=== PATIENT | female | born 2000 | race Caucasian/White ===

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

== ENCOUNTER 2020-05-17 13:04 | Emergency (ER) | payer OTHER ==
[~2020-05-17] VITALS: Ht 170.2 cm; Wt 120.2 kg
[~2020-05-17 13:04] MED LIST changes: +Cyclobenzaprine5 MG PO
[2020-05-17 14:54] LABS: BASOPHILS ABSOLUTE AUTO 0.09 K/mm3 (0.00-0.23); BASOPHILS PERCENT AUTO 1 % (0-2); EOSINOPHILS PERCENT AUTO 1 % (0-6); Hematocrit 41.9 % (33.0-51.0); Hemoglobin 13.6 g/dL (11.5-16.0); IMMATURE GRAN ABSOLUTE AUTO 0.06 K/mm3 (0.00-0.10); IMMATURE GRAN PERCENT AUTO 1 % (0-1); LYMPHOCYTES ABSOLUTE AUTO 1.88 K/mm3 (0.84-5.20); LYMPHOCYTES PERCENT AUTO 16 % (21-46); MONOCYTES ABSOLUTE AUTO 0.71 K/mm3 (0.16-1.47); MONOCYTES PERCENT AUTO 6 % (4-13); Mean Corpuscular HGB 28.7 pg (26.0-34.0); Mean Corpuscular HGB Conc 32.5 g/dL (31.5-36.5); Mean Corpuscular Volume 88 fL (80-100); Mean Platelet Volume 12.1 fL (9.1-12.4); NEUTROPHILS ABSOLUTE AUTO 9.28 K/mm3 (1.96-9.15); NEUTROPHILS PERCENT AUTO 77 % (41-73); Platelet Count 182 K/mm3 (150-400); RDW Coefficient Variation 13.7 % (11.7-14.2); RDW Standard Deviation 44.1 fL (35.1-46.3); Red Blood Cell Count 4.74 M/mm3 (3.80-5.20); White Blood Cell Count 12.12 K/mm3 (4.00-11.30)
[2020-05-17 15:03] LABS: Anion Gap 4 mmol/L (6-16); Blood Urea Nitrogen 7 mg/dL (8-24); Bun/Creatinine Ratio 14.5 (12.0-20.0); CO2, Blood 24 mmol/L (21-32); Calcium, Blood 8.7 mg/dL (8.5-10.1); Chloride, Blood 110 mmol/L (98-108); Creatinine, Blood 0.48 mg/dL (0.40-1.00); Glomerular Filtration Rate >60 (60-); Glucose, Blood 92 mg/dL (70-99); Potassium, Blood 3.9 mmol/L (3.5-5.5); Sodium, Blood 138 mmol/L (136-145)
== END 2020-05-17 16:58 | disposition home or self-care (01) ==
LOC: ER 13:04
PROVIDERS: Physician Assistant
DX: O99.613 Diseases of the digestive system complicating pregnancy, third trimester (principal); K92.0 Hematemesis; K21.9 Gastro-esophageal reflux disease without esophagitis; Z3A.30 30 weeks gestation of pregnancy; Z79.899 Other long term (current) drug therapy
CPT/HCPCS: 36415; 80048; 85025; 99284

== ENCOUNTER 2020-07-24 08:30 | Inpatient (IN) | payer OTHER ==
[~2020-07-24] VITALS: Ht 170.2 cm; Wt 121.5 kg
--- NOTE | 2020-07-24 09:39 | NUR ---
HERE WITH R/O SROM/ PATIENT REPORTS LEAKING AT APPROX 0745. NITRAZINE POSITIVE. ADMIT TO [facility]BP
[2020-07-24 09:59] LABS: BASOPHILS ABSOLUTE AUTO 0.05 K/mm3 (0.00-0.23); BASOPHILS PERCENT AUTO 1 % (0-2); EOSINOPHILS ABSOLUTE AUTO 0.13 K/mm3 (0.00-0.68); EOSINOPHILS PERCENT AUTO 1 % (0-6); Hematocrit 35.4 % (33.0-51.0); Hemoglobin 11.9 g/dL (11.5-16.0); IMMATURE GRAN ABSOLUTE AUTO 0.03 K/mm3 (0.00-0.10); IMMATURE GRAN PERCENT AUTO 0 % (0-1); LYMPHOCYTES ABSOLUTE AUTO 1.74 K/mm3 (0.84-5.20); LYMPHOCYTES PERCENT AUTO 18 % (21-46); MONOCYTES ABSOLUTE AUTO 0.91 K/mm3 (0.16-1.47); MONOCYTES PERCENT AUTO 10 % (4-13); Mean Corpuscular HGB 29.1 pg (26.0-34.0); Mean Corpuscular HGB Conc 33.6 g/dL (31.5-36.5); Mean Corpuscular Volume 87 fL (80-100); NEUTROPHILS ABSOLUTE AUTO 6.74 K/mm3 (1.96-9.15); NEUTROPHILS PERCENT AUTO 70 % (41-73); Platelet Count 149 K/mm3 (150-400); RDW Coefficient Variation 13.2 % (11.7-14.2); RDW Standard Deviation 41.1 fL (35.1-46.3); Red Blood Cell Count 4.09 M/mm3 (3.80-5.20)
[2020-07-24 10:01] LABS: Mean Platelet Volume 13.4 fL (9.1-12.4)
[2020-07-24 10:19] LABS: Influenza A, PCR NEGATIVE (NEGATIVE); Influenza B, PCR NEGATIVE (NEGATIVE); Resp Syncytial Virus, PCR NEGATIVE (NEGATIVE); SARS-Cov-2 (COVID-19) PCR, MMC NEGATIVE (NEGATIVE)
[2020-07-26 05:57] LABS: Hematocrit 33.5 % (33.0-51.0); Hemoglobin 11.1 g/dL (11.5-16.0); Mean Corpuscular HGB 28.8 pg (26.0-34.0); Mean Corpuscular HGB Conc 33.1 g/dL (31.5-36.5); Mean Corpuscular Volume 87 fL (80-100); Platelet Count 140 K/mm3 (150-400); RDW Coefficient Variation 13.5 % (11.7-14.2); RDW Standard Deviation 42.1 fL (35.1-46.3); Red Blood Cell Count 3.86 M/mm3 (3.80-5.20); White Blood Cell Count 9.75 K/mm3 (4.00-11.30)
[2020-07-26 05:58] LABS: Mean Platelet Volume 13.1 fL (9.1-12.4)
--- NOTE | 2020-07-26 13:18 | NUR ---
pt given dc instructions written and verbal with pt verbalizing understanding
== END 2020-07-26 12:29 | disposition home or self-care (01) | DRG 807 ==
LOC: BC 08:30 → OBS 08:30 → BC 08:32 → OBS 08:59 → BC 08:59
PROVIDERS: ADMIT Advanced Practice Midwife
PROC: 3E0R3BZ Introduction of Anesthetic Agent into Spinal Canal, Percutaneous Approach (ICD-10-PCS; 2020-07-24)
PROC: 00HU33Z Insertion of Infusion Device into Spinal Canal, Percutaneous Approach (ICD-10-PCS; 2020-07-24)
PROC: 10H07YZ Insertion of Other Device into Products of Conception, Via Natural or Artificial Opening (ICD-10-PCS; 2020-07-24)
PROC: 10E0XZZ Delivery of Products of Conception, External Approach (ICD-10-PCS; principal; 2020-07-25)
PROC: 0HQ9XZZ Repair Perineum Skin, External Approach (ICD-10-PCS; 2020-07-25)
DX: O99.824 Streptococcus B carrier state complicating childbirth (principal); Z37.0 Single live birth; O70.0 First degree perineal laceration during delivery; Z3A.39 39 weeks gestation of pregnancy; Z20.822 Contact with and (suspected) exposure to COVID-19; O69.81X0 Labor and delivery complicated by cord around neck, without compression, not applicable or unspecified
CPT/HCPCS: 0241U; 36415; 51702; 59025; 85025; 85027; 86850; 86900; 86901; A9270; J0290; J1885; J2001; J2210; J2405; J2590; J3010; J7120

== ENCOUNTER → 2020-10-12 | Outpatient (CLI) | payer OTHER | LOC: LAB SHORT 13:49 → LAB 13:49 | PROVIDERS: Family Medicine | DX: Z12.4 Encounter for screening for malignant neoplasm of cervix (principal) | CPT/HCPCS: G0123 ==

== ENCOUNTER 2024-01-02 20:10 | Emergency (ER) | payer OTHER ==
[~2024-01-02] VITALS: Ht 170.2 cm; Wt 113.4 kg
[~2024-01-02 20:10] MED LIST changes: +GABA100 PO
[2024-01-02 20:13] VITALS: BP 101/84
[2024-01-02] MEDS ORDERED: Diphth,Pertuss(Acell),Tet Vac 0.5 ML VIAL IM ONE (20:15)
== END 2024-01-02 21:25 | disposition home or self-care (01) ==
LOC: ER 20:10
DX: S61.411A Laceration without foreign body of right hand, initial encounter (principal); W25.XXXA Contact with sharp glass, initial encounter; Z79.899 Other long term (current) drug therapy
CPT/HCPCS: 12001; 90471; 90715; 99282-25

== ENCOUNTER → 2024-04-11 | Outpatient (CLI) | payer BC | LOC: LAB SHORT 19:07 | DX: Z34.93 Encounter for supervision of normal pregnancy, unspecified, third trimester (principal) | CPT/HCPCS: 87081; 87150 ==

== ENCOUNTER 2024-04-26 07:02 | Inpatient (IN) | payer BC ==
[~2024-04-26] VITALS: Ht 170.2 cm; Wt 116.7 kg
[2024-04-26] VITALS (11 sets, daily range): BP systolic 102–160; BP diastolic 55–68
[2024-04-26] MEDS ORDERED: FentaNYL Citrate 50 MCG/ML 2 ML Injection IV PRN (07:10)
[2024-04-26] MEDS ORDERED: Methylergonovine Maleate 0.2MG / ML 1ML Amp IM PRN (07:15)
[2024-04-26] MEDS ORDERED: Oxytocin 10 Unit / ML Vial IM PRN (07:15)
[2024-04-26] MEDS ORDERED: Acetaminophen 500 MG Tab PO PRN (07:15)
[2024-04-26] MEDS ORDERED: Carboprost Tromethamine 250 MCG/ML 1ML Amp IM PRN (07:15)
[2024-04-26] MEDS ORDERED: Penicillin G Potassium 5,000,000 UNITS in NS 250 ML IV ONE (07:15)
[2024-04-26] MEDS ORDERED: Misoprostol 200 MCG Tab PR PRN (07:15)
[2024-04-26] MEDS ORDERED: Calcium Carbonate 500 MG Tab Chew PO PRN (07:15)
[2024-04-26] MEDS ORDERED: Lactated Ringer's 1,000 ML IV PRN (07:15)
[2024-04-26] MEDS ORDERED: Misoprostol 200 MCG Tab BC PRN (07:15)
[2024-04-26] MEDS ORDERED: OXYTOCIN/RINGER'S LACTATE 500 ML IV SCH (07:15)
[2024-04-26] MEDS ORDERED: Lactated Ringer's 1,000 ML IV SCH ×3 (07:15→07:20)
[2024-04-26] MEDS ORDERED: OXYTOCIN/RINGER'S LACTATE 500 ML IV PRN (07:15)
[2024-04-26] MEDS ORDERED: Ondansetron HCl 2 MG / ML 2ML Vial IV PRN (07:15)
[2024-04-26] MEDS ORDERED: ePHEDrine Sulfate 50 MG/ML 1ML Injection XX PRN (07:20)
[2024-04-26] MEDS ORDERED: FentaNYL 2mcg/ml-Bup 0.1% Epd 250 ML EPI PRN (07:20)
[2024-04-26] MEDS ORDERED: Tranexamic Acid 1,000 MG in NS 100 ML IV SCH (07:30)
[2024-04-26] MEDS ORDERED: PRENATAL TABLE1 EAC2 PO (07:45)
[2024-04-26] MEDS ORDERED: Misoprostol 25 MCG Tab PO SCH (08:00)
[2024-04-26 08:09] LABS: BASOPHILS ABSOLUTE AUTO 0.08 K/mm3 (0.00-0.23); BASOPHILS PERCENT AUTO 1 % (0-2); EOSINOPHILS ABSOLUTE AUTO 0.13 K/mm3 (0.00-0.68); EOSINOPHILS PERCENT AUTO 1 % (0-6); Hematocrit 37.2 % (33.0-51.0); Hemoglobin 12.5 g/dL (11.5-16.0); IMMATURE GRAN ABSOLUTE AUTO 0.05 K/mm3 (0.00-0.10); IMMATURE GRAN PERCENT AUTO 1 % (0-1); LYMPHOCYTES ABSOLUTE AUTO 1.43 K/mm3 (0.84-5.20); LYMPHOCYTES PERCENT AUTO 15 % (21-46); MONOCYTES ABSOLUTE AUTO 0.54 K/mm3 (0.16-1.47); MONOCYTES PERCENT AUTO 6 % (4-13); Mean Corpuscular HGB 29.1 pg (26.0-34.0); Mean Corpuscular HGB Conc 33.6 g/dL (31.5-36.5); Mean Corpuscular Volume 87 fL (80-100); Mean Platelet Volume 12.5 fL (9.1-12.4); NEUTROPHILS ABSOLUTE AUTO 7.22 K/mm3 (1.96-9.15); NEUTROPHILS PERCENT AUTO 77 % (41-73); Platelet Count 162 K/mm3 (150-400); RDW Coefficient Variation 13.7 % (11.7-14.2); RDW Standard Deviation 42.5 fL (35.1-46.3); Red Blood Cell Count 4.29 M/mm3 (3.80-5.20); White Blood Cell Count 9.45 K/mm3 (4.00-11.30)
[2024-04-26] MEDS ORDERED: Penicillin G Potassium 2,500,000 UNITS in Dextrose 5% 100 ML IV SCH (12:00)
[2024-04-27] VITALS (37 sets, daily range): BP systolic 88–181; BP diastolic 49–75
[2024-04-27] MEDS ORDERED: NS 1,000 ML IV ONE (03:29)
[2024-04-27] MEDS ORDERED: NS 1,000 ML BAG XX SCH (04:55)
[2024-04-27] MEDS ORDERED: Metoclopramide HCl 5MG / ML 2ML Vial IV ONE (07:10)
[2024-04-27] MEDS ORDERED: Pantoprazole Sodium 40 MG Injection IV ONE (07:10)
[2024-04-27] MEDS ORDERED: Lactated Ringer's 1,000 ML IV SCH ×3 (07:15→10:45)
[2024-04-27] MEDS ORDERED: Ibuprofen 400 MG Tab PO PRN (10:35)
[2024-04-27] MEDS ORDERED: Lanolin Cream TOP PRN (10:40)
[2024-04-27] MEDS ORDERED: FLU VACC TS2024-25(6MOS UP)/PF 45 MCG/0.5 ML SYRINGE IM SCH (10:40)
[2024-04-27] MEDS ORDERED: Witch Hazel/Glycerin PADS TOP PRN (10:40)
[2024-04-27] MEDS ORDERED: OXYTOCIN/RINGER'S LACTATE 500 ML IV SCH (10:40)
[2024-04-27] MEDS ORDERED: OxyCODONE 5 mg/Acetamin 325 mg TABLET PO PRN (10:40)
[2024-04-27] MEDS ORDERED: Docusate Sodium 100 MG Cap PO PRN (10:40)
[2024-04-27] MEDS ORDERED: Methylergonovine Maleate 0.2MG / ML 1ML Amp IM PRN (10:45)
[2024-04-27] MEDS ORDERED: Ketorolac Tromethamine 30mg Vial IV PRN (10:45)
[2024-04-27] MEDS ORDERED: Diphth,Pertuss(Acell),Tet Vac 0.5 ML VIAL IM SCH (10:45)
[2024-04-27] MEDS ORDERED: Benzocaine Topical Anesthetic Spray 60GM TOP PRN (10:45)
[2024-04-27] MEDS ORDERED: Misoprostol 100 MCG Tab PO PRN (10:45)
[2024-04-27] MEDS ORDERED: Acetaminophen 325 MG TABLET PO PRN (10:45)
[2024-04-28 01:13] VITALS: BP 137/79
[2024-04-28 04:55] VITALS: BP 117/60
[2024-04-28 06:21] LABS: Hematocrit 34.3 % (33.0-51.0); Hemoglobin 11.5 g/dL (11.5-16.0); Mean Corpuscular HGB 29.8 pg (26.0-34.0); Mean Corpuscular HGB Conc 33.5 g/dL (31.5-36.5); Mean Corpuscular Volume 89 fL (80-100); Mean Platelet Volume 12.2 fL (9.1-12.4); Platelet Count 159 K/mm3 (150-400); RDW Coefficient Variation 13.7 % (11.7-14.2); RDW Standard Deviation 44.3 fL (35.1-46.3); Red Blood Cell Count 3.86 M/mm3 (3.80-5.20); White Blood Cell Count 10.48 K/mm3 (4.00-11.30)
[2024-04-28 07:43] VITALS: BP 133/63
[2024-04-28] MEDS ORDERED: Prenatal Vit/FE Fumarate/FA 1 Tab PO SCH (09:00)
[2024-04-28 10:41] VITALS: BP 120/74
== END 2024-04-28 12:30 | disposition home or self-care (01) | DRG 807 ==
LOC: OBS 07:02 → BC 07:03 → OBS 07:14 → BC 07:15
PROVIDERS: ADMIT Advanced Practice Midwife
PROC: 10907ZC Drainage of Amniotic Fluid, Therapeutic from Products of Conception, Via Natural or Artificial Opening (ICD-10-PCS; 2024-04-26)
PROC: 10H07YZ Insertion of Other Device into Products of Conception, Via Natural or Artificial Opening (ICD-10-PCS; 2024-04-26)
PROC: 3E0P7VZ Introduction of Hormone into Female Reproductive, Via Natural or Artificial Opening (ICD-10-PCS; 2024-04-26)
PROC: 3E033VJ Introduction of Other Hormone into Peripheral Vein, Percutaneous Approach (ICD-10-PCS; 2024-04-26)
PROC: 4A1H7CZ Monitoring of Products of Conception, Cardiac Rate, Via Natural or Artificial Opening (ICD-10-PCS; 2024-04-26)
PROC: 10H073Z Insertion of Monitoring Electrode into Products of Conception, Via Natural or Artificial Opening (ICD-10-PCS; 2024-04-26)
PROC: 10E0XZZ Delivery of Products of Conception, External Approach (ICD-10-PCS; principal; 2024-04-27)
PROC: 3E0E77Z Introduction of Electrolytic and Water Balance Substance into Products of Conception, Via Natural or Artificial Opening (ICD-10-PCS; 2024-04-27)
DX: O99.824 Streptococcus B carrier state complicating childbirth (principal); Z37.0 Single live birth; Z3A.39 39 weeks gestation of pregnancy; K58.9 Irritable bowel syndrome, unspecified; O99.62 Diseases of the digestive system complicating childbirth; O99.324 Drug use complicating childbirth; F12.90 Cannabis use, unspecified, uncomplicated; O76 Abnormality in fetal heart rate and rhythm complicating labor and delivery
CPT/HCPCS: 36415; 51702; 59070; 85025; 85027; 86850; 86900; 86901; 86923; A9270; J1885; J2405; J2470; J2540; J2590; J3010; J7030; J7050; J7120

== ENCOUNTER 2024-07-14 08:19 | Day surgery (SDC) | payer BC ==
[2024-07-14] VITALS (11 sets, daily range): BP systolic 109–160; BP diastolic 50–119
[~2024-07-14] VITALS: Ht 170.2 cm; Wt 115.3 kg
[~2024-07-14 08:19] MED LIST changes: +CeFAZolin Sodium 2,000 MG in NS 100 ML IV SCH; +Lactated Ringer's 1,000 ML IV SCH; +PRENATAL TABLE1 EAC2 PO
[2024-07-14] MEDS ORDERED: CeFAZolin Sodium 2,000 MG VIAL ONE (09:00)
--- NOTE | 2024-07-14 09:44 | NUR ---
History, Chart, Medications and Allergies reviewed before start of procedure. Lungs clear T/O to Auscultation. Patient confirms NPO status and agrees with scheduled surgery. Pre-Op teaching done. Pt verbalizes understanding. Patient reports completing Chlorhexadine shower X2 prior to admission to hospital.
[2024-07-14] MEDS ORDERED: Bupivacaine 0.5% HCl 5 MG/ML 30MLVIAL ONE (10:05)
[2024-07-14] MEDS ORDERED: FentaNYL Citrate 50 MCG/ML 2 ML Injection ONE ×2 (10:06→11:46)
[2024-07-14] MEDS ORDERED: propofoL 20 ML IV ONE (10:06)
[2024-07-14] MEDS ORDERED: Rocuronium Bromide 10 MG/ML 5ML Injection IV ONE (10:07)
[2024-07-14] MEDS ORDERED: Lidocaine HCl 2% 20 ML MDV ONE (10:07)
[2024-07-14] MEDS ORDERED: Dexamethasone Sod Phos 10 MG/ML 1ML VIAL ONE (10:07)
[2024-07-14] MEDS ORDERED: Ondansetron HCl 2 MG / ML 2ML Vial ONE (10:07)
[2024-07-14] MEDS ORDERED: Ketorolac Tromethamine 30mg Vial ONE (10:07)
[2024-07-14] MEDS ORDERED: Lidocaine HCl 1% 5 ML SYR INJ ONE (10:15)
[2024-07-14] MEDS ORDERED: FentaNYL Citrate 50 MCG/ML 2 ML Injection IV PRN ×3 (10:20)
[2024-07-14] MEDS ORDERED: Ondansetron HCl 2 MG / ML 2ML Vial IV PRN (10:20)
[2024-07-14] MEDS ORDERED: HYDROmorphone HCl/Pf 1MG SYR IV PRN (10:20)
[2024-07-14] MEDS ORDERED: Neostigmine Methylsulfate 5MG/5ML SYR ONE (11:17)
[2024-07-14] MEDS ORDERED: Glycopyrrolate 0.2 MG/ML 5ML VIAL ONE (11:17)
[2024-07-14] MEDS ORDERED: HYDROmorphone HCl/Pf 1MG SYR ONE (11:27)
[2024-07-14] MEDS ORDERED: OxyCODONE 5 mg/Acetamin 325 mg TABLET PO PRN (11:30)
[2024-07-14] MEDS ORDERED: Midazolam HCl 1MG / ML 2ML Vial ONE (11:37)
--- NOTE | 2024-07-14 12:46 | NUR ---
Discharge instructions reviewed with patient. Patient verbalizes understanding. Copy given to patient to take home. Patient States Post-Procedure ride home has been arranged WITH MOM, ANGUS. Discharged via wheelchair to private car for ride home.
== END 2024-07-14 13:03 | disposition home or self-care (01) ==
LOC: ORSCMMR 08:19 → ORD 15:00 → ORSCMMR 15:00
PROVIDERS: Obstetrics & Gynecology
PROC: 0UT74ZZ Resection of Bilateral Fallopian Tubes, Percutaneous Endoscopic Approach (ICD-10-PCS; principal; 2024-07-14 11:00)
DX: Z30.2 Encounter for sterilization (principal); E66.9 Obesity, unspecified; Z68.39 Body mass index [BMI] 39.0-39.9, adult
CPT/HCPCS: 88302; A9270; J0690; J1100; J1171; J1885; J2250; J2405; J2704; J2710; J3010; J7120